=== PATIENT | female | born 1985 | race Caucasian/White ===

== ENCOUNTER 2019-06-29 16:18 | Emergency (ER) | payer BC ==
[2019-06-29 16:31] VITALS: TEMP 98.5
--- NOTE | 2019-06-29 16:53 | ED ---
General Adult HPI - General Chief complaint: Abdominal Pain Stated complaint: Gallstones, 13.5 weeks Time Seen by Provider: 06/29/19 16:32 Source: patient Mode of arrival: ambulatory Limitations: no limitations - History of Present Illness Initial comments: Patient is a at 13.5 weeks gestation who presents the ED with her for evaluation. Patient states "I think I have gallstones". Patient states that she has had intermittent epigastric abdominal pain radiating to her back with associated nausea and vomiting for the past 5 days or so. Patient states that her worst and longest episode was earlier today. Patient states candido t her symptoms have currently resolved, and she denies having any pain or symptoms currently. Patient denies trauma or injury, fever or chills, headache, chest pain, dyspnea, dizziness, lower abdominal/pelvic pain, back or flank pain, diarrhea or constipation, bloody or melanotic stool, hematemesis, dysuria/hematuria/urinary frequency/urinary symptoms, vaginal bleeding or discharge, or any other symptoms or complaints. Patient denies any exacerbating or alleviating factors. - Related Data Allergies Allergy/AdvReac Type Severity Reaction Status Date / Time No Known Allergies Allergy Verified 06/29/19 16:31 Review of Systems ROS Statement: Those systems with pertinent positive or pertinent negative responses have been documented in the HPI. ROS Other: All systems not noted in ROS Statement are negative. Past Medical History Past Medical History: No Reported History History of Any Multi-Drug Resistant Organisms: None Reported Past Surgical History: Section Past Psychological History: No Psychological Hx Reported Smoking Status: Never smoker Past Alcohol Use History: None Reported Past Drug Use History: None Reported General Exam Limitations: no limitations General appearance: alert, in no apparent distress Head exam: Present: atraumatic, normocephalic Eye exam: Present: normal appearance, EOMI ENT exam: Present: mucous membranes moist Neck exam: Present: other (Trachea is in midline) Respiratory exam: Present: normal lung sounds bilaterally. Absent: respiratory distress, wheezes, rales, rhonchi Cardiovascular Exam: Present: regular rate, normal rhythm, normal heart sounds, other (Normal radial pulses bilaterally) GI/Abdominal exam: Present: soft, normal bowel sounds. Absent: distended, tenderness, guarding Extremities exam: Present: normal inspection. Absent: tenderness, pedal edema, calf tenderness Back exam: Absent: CVA tenderness (R), CVA tenderness (L) Neurological exam: Present: alert, oriented X3. Absent: motor sensory deficit Psychiatric exam: Present: normal affect, normal mood Skin exam: Present: warm, dry, intact, normal color Course Vital Signs 06/29/19 06/29/19 16:28 18:00 Temperature 98.5 F Pulse Rate 79 90 Respiratory 18 17 Rate Blood Pressure 104/71 112/59 O2 Sat by Pulse 100 100 Oximetry Medical Decision Making - Medical Decision Making Patient continues to deny having any pain or symptoms while in the ED. Patient's abdomen remains soft and nontender on exam. Patient has a negative Morales's sign. Given the patient's symptoms and ultrasound finding of a gallstone, I suspect that the patient's symptoms are likely secondary to biliary colic. Patient has no evidence of ductal dilatation or cholecystitis. Patient and are aware the patient's test results, and patient feels comfortable going home at this time. She was counseled about cholelithiasis and biliary colic in . She was instructed to follow up closely with her CONDITIONING COACH, as well as a general surgeon. She was clearly explained return and follow-up ins tructions. She feels comfortable with this plan. - Lab Data Result diagrams: 06/29/19 17:05 06/29/19 17:05 Lab Results 06/29/19 06/29/19 Range/Units 17:05 17:05 WBC 9.1 (3.8-10.6) k/uL RBC 3.98 (3.80-5.40) m/uL Hgb 12.2 (11.4-16.0) gm/dL Hct 34.8 (34.0-46.0) % MCV 87.4 (80.0-100.0) fL MCH 30.7 (25.0-35.0) pg MCHC 35.1 (31.0-37.0) g/dL RDW 13.4 (11.5-15.5) % Plt Count 209 (150-450) k/uL Neutrophils % 78 % Lymphocytes % 15 % Monocytes % 4 % Eosinophils % 1 % Basophils % 0 % Neutrophils # 7.1 (1.3-7.7) k/uL Lymphocytes # 1.4 (1.0-4.8) k/uL Monocytes # 0.4 (0-1.0) k/uL Eosinophils # 0.1 (0-0.7) k/uL Basophils # 0.0 (0-0.2) k/uL Sodium 138 (137-145) mmol/L Potassium 3.8 (3.5-5.1) mmol/L Chloride 107 (98-107) mmol/L Carbon Dioxide 24 (22-30) mmol/L Anion Gap 7 mmol/L BUN 8 (7-17) mg/dL Creatinine 0.44 L (0.52-1.04) mg/dL Est GFR (CKD-EPI)AfAm >90 (>60 ml/min/1.73 sqM) Est GFR (CKD-EPI)NonAf >90 (>60 ml/min/1.73 sqM) Glucose 92 (74-99) mg/dL Calcium 9.2 (8.4-10.2) mg/dL Total Bilirubin 0.5 (0.2-1.3) mg/dL AST 65 H (14-36) U/L ALT 40 H (4-34) U/L Alkaline Phosphatase 65 (38-126) U/L Total Protein 6.8 (6.3-8.2) g/dL Albumin 3.7 (3.5-5.0) g/dL Lipase 80 (23-300) U/L - Radiology Data Radiology results: report reviewed (Gallbladder ultrasound shows a small gallstone, no dilated ducts, no focal liver defect) Disposition Clinical Impression: Abdominal pain in , Cholelithiasis, Biliary colic Disposition: HOME SELF-CARE Condition: Stable Instructions (If sedation given, give patient instructions): Abdominal Pain in (ED), Biliary Colic (ED) Additional Instructions: Return to the ER immediately should you develop new or worsening pain, persistent vomiting, a fever, shortness of breath, feeling dizzy or faint, vaginal bleeding, or near worsening symptoms. Follow up closely with your [employer] ADMINISTRATOR, as well as a general surgeon. Is patient prescribed a controlled substance at d/c from ED?: No Referrals: Nonstaff,Physician [REFERRING] - 1-2 days Alphonse Davila DO [Doctor of Osteopathic Medicine] - 1-2 days Time of Disposition: 18:48
[2019-06-29 17:31] LABS: Basophils % (A) 0 %; Eosinophils # (A) 0.1 k/uL (0-0.7); Eosinophils % (A) 1 %; HCT 34.8 % (34.0-46.0); HGB 12.2 gm/dL (11.4-16.0); Lymphocytes # (A) 1.4 k/uL (1.0-4.8); Lymphocytes % (A) 15 %; MCH 30.7 pg (25.0-35.0); MCHC 35.1 g/dL (31.0-37.0); MCV 87.4 fL (80.0-100.0); Mean Platelet Volume 7.6; Monocytes # (A) 0.4 k/uL (0-1.0); Monocytes % (A) 4 %; Neutrophils # (A) 7.1 k/uL (1.3-7.7); Neutrophils % (A) 78 %; Platelet Count 209 k/uL (150-450); RBC 3.98 m/uL (3.80-5.40); RDW 13.4 % (11.5-15.5); WBC 9.1 k/uL (3.8-10.6)
[2019-06-29 17:40] LABS: ALT 40 U/L (4-34); AST 65 U/L (14-36); African American GFR (CKD) >90 (>60 ml/min/1.73 sqM); Albumin 3.7 g/dL (3.5-5.0); Alkaline Phosphatase 65 U/L (38-126); Anion Gap 7 mmol/L; Blood Urea Nitrogen 8 mg/dL (7-17); Calcium 9.2 mg/dL (8.4-10.2); Carbon Dioxide 24 mmol/L (22-30); Chloride 107 mmol/L (98-107); Glucose 92 mg/dL (74-99); Non-African American GFR(CKD) >90 (>60 ml/min/1.73 sqM); Potassium 3.8 mmol/L (3.5-5.1); Sodium 138 mmol/L (137-145); Total Bilirubin 0.5 mg/dL (0.2-1.3); Total Protein 6.8 g/dL (6.3-8.2)
--- NOTE | 2019-06-29 18:24 | US ---
EXAMINATION TYPE: US gallbladder DATE OF EXAM: 06/29/2019 COMPARISON: NONE CLINICAL HISTORY: abdominal pain. Epigastric pain x 1 week radiating to back, nausea EXAM MEASUREMENTS: Liver Length: 15.2 cm Gallbladder Wall: 0.2 cm CBD: 0.2 cm Right Kidney: 12.3 x 6.0 x 4.1 cm Pancreas: wnl Liver: wnl Gallbladder: elongated fundus with hyperechoic, shadowing oval focus noted in LLD position only Evidence for sonographic Morales's sign: no CBD: wnl Right Kidney: wnl IMPRESSION: There is small gallstone demonstrated. No dilated ducts. No focal liver defect.
[2019-06-29] MEDS ORDERED: ACET/COD 300 MG/30 MG STARTER PACK 6 TAB BTL PO STA (18:46)
[2019-06-29 19:12] VITALS: BP 110/64; PULSE 74; RESP 15
== END 2019-06-29 19:13 | disposition home or self-care (01) ==
LOC: EC 16:18
DX: O99.611 Diseases of the digestive system complicating pregnancy, first trimester (principal); K80.70 Calculus of gallbladder and bile duct without cholecystitis without obstruction; Z3A.13 13 weeks gestation of pregnancy
CPT/HCPCS: 36415; 76705; 80053; 83690; 85025; 99284